=== PATIENT | male | born 1985 | race Caucasian/White ===

== ENCOUNTER 2016-05-10 06:16 | Emergency (ER) ==
[2016-05-10 06:24] VITALS: BP 127/71
--- NOTE | 2016-05-10 06:39 | PROVIDER DOCUMENTATION ---
HPI-Respiratory General - General Chief Complaint: Cold Symptoms Stated Complaint: HEADACHE/CONGESTION/EAR PAIN Time Seen by Provider: 05/10/16 06:22 Source: patient Allergies/Adverse Reactions: Patient Allergies Allergy/AdvReac Type Severity Reaction Status Date / Time No Known Allergies Allergy Verified 05/10/16 06:24 Home Medications: Home Medication List Medication Instructions Recorded Confirmed Last Taken Type Amoxicillin/Potassium Clav 1 each PO BID #20 tablet 05/10/16 Unknown Rx [Augmentin 875-125 Tablet] Fluticasone 50 Mcg Nasal [place] 1 spray ERIC DAILY #1 bottle 05/10/16 Unknown Rx [Flonase] Methylprednisolone [Medrol Dosepak] 4 mg PO DIRECTED #1 package 05/10/16 Unknown Rx - History of Present Illness-Resp Nature of Presenting Problem: Reports recurrent symptoms for sinusitis since this morning. Head congestion/[place] and post nasal drainage. Pt is familiar with these symptoms. Wants Flonase and Abx pills, etc. Pt looks comfortable when seen and requests a work excuse. Quality of Pain: reports: none Severity in ED: reports: mild Onset/Duration: reports: this morning Timing: reports: still present Exposure: reports: unknown cause Cough Quality/Degree: reports: mild Episode Frequency: chronic episodes Current Respiratory Medication Therapy: Initiated none Modifying Factors: improves with: nothing. worse with: other Associated Symptoms: reports: earache, headache, nasal congestion, nasal drainage. denies: dizziness, facial pain, fever/chills, flu-like symptoms, heart racing, short of breath, sore throat Similar Symptoms Previously?: Yes Recently seen or treated by another doctor?: No Review of Systems - Adult - REVIEW OF SYSTEMS - ADULT Constitutional: reports: no symptoms reported Eyes: reports: no symptoms reported Ears, Nose, Mouth & Throat: reports: see HPI, ear pain, sinus problem. denies: loose teeth, throat pain, throat swelling Cardiovascular: reports: no symptoms reported Respiratory: reports: see HPI, cough Gastrointestinal: reports: no symptoms reported Genitourinary: reports: no symptoms reported All Other Systems: Reviewed and Negative Past History - Adult - PAST MEDICAL HISTORY-ADULT Review of Records: reports: Nursing Assessment Review, Medications Reviewed Major Childhood Illnesses: reports: denies history Cardiovascular: reports: denies history Respiratory: reports: denies history Gastrointestinal: reports: denies history Obstetrical/Gynecological: reports: denies history Genitourinary: reports: denies history Musculoskeletal: reports: denies history Neurological: reports: headaches/migraines Psychiatric: reports: denies history Endocrine/Immune: reports: denies history Other Conditions: reports: denies history - PRIOR SURGERIES/PROCEDURES Surgical/Procedure History: reports: back/neck - IMMUNIZATION STATUS Childhood Immunizations: See Nurse Assessment Flu Vaccine: See Nurse Assessment - FAMILY HISTORY Family History: reviewed, not pertinent Physical Exam-General - PHYSICAL EXAM-ADULT Initial Vital Signs Reviewed: Yes - CONSTITUTIONAL General Appearance: appears well, alert, no apparent distress - EYES Eyes: PERRL/EOMI, pink conjunctivae - HEAD, EARS, NOSE, MOUTH & THROAT HENMT: normocephalic/atraumatic, moist mucous membranes, normal ENT inspection, pharynx normal - RESPIRATORY Respiratory: chest non-tender, lungs clear, normal breath sounds, no pleuratic chest pain, no respiratory distress, no accessory muscle use - CARDIOVASCULAR Cardiovascular: normal peripheral pulses, regular rate, rhythm, no edema - GASTROINTESTINAL (ABDOMEN) Abdominal Exam: normal bowel sounds, non tender, soft - MUSCULOSKELETAL Extremity: normal range of motion, non-tender, normal gait - SKIN Integumentary: normal color, normal turgor, warm/dry - PSYCHIATRIC Psych/Mental Status: normal mood/affect, normal thought content, normal thought process, oriented x 3 Departure - Departure Time of Disposition Order: 06:37 DIAGNOSIS: Sinusitis Qualifiers: Sinusitis location: unspecified location Chronicity: acute Recurrence: recurrent Qualified Code(s): J01.91 - Acute recurrent sinusitis, unspecified Disposition: HOME 01 Certified Medical Emergency: Emergent Condition: Stable Additional Instructions: Follow up with regular MD in 2-3 days. Prescriptions: Amoxicillin/Potassium Clav [Augmentin 875-125 Tablet] 1 each PO BID #20 tablet Fluticasone 50 Mcg Nasal [place] [Flonase] 1 spray ERIC DAILY #1 bottle Methylprednisolone [Medrol Dosepak] 4 mg PO DIRECTED #1 package
== END 2016-05-10 06:47 | disposition home or self-care (01) ==
LOC: P.ED 06:16
DX: J01.91 Acute recurrent sinusitis, unspecified (principal); R51 Headache; H92.09 Otalgia, unspecified ear; R09.81 Nasal congestion